=== PATIENT | female | born 1955 | race Two or more races ===

== ENCOUNTER 2025-10-31 03:40 | Emergency (ER) | payer OTHER ==
[~2025-10-31] VITALS: Ht 162.6 cm; Wt 72.6 kg
[2025-10-31] MEDS ORDERED: ZOLOFT100 MG (03:47)
[2025-10-31 03:51] VITALS: BP 147/61; O2SAT 97
[2025-10-31] MEDS ORDERED: PROMETHAZINE HCL 25 MG/ML AMPUL IM STA (06:12)
[2025-10-31] MEDS ORDERED: FAMOTIDINE/PF 20 MG in 0.9 % SODIUM CHLORIDE 10 ML IV PUSH STA (06:14)
[2025-10-31] MEDS ORDERED: LACTOBACILLUS ACIDOPHILUS 1 CAP CAP PO STA (06:14)
[2025-10-31] MEDS ORDERED: 0.9 % SODIUM CHLORIDE 1,000 ML IV ONE (06:15)
[2025-10-31] MEDS ORDERED: LACTOBACILLUS ACIDOPHILUS 1 CAP CAP PO ONE (06:24)
[2025-10-31] MEDS ORDERED: PROMETHAZINE HCL 25 MG/ML AMPUL ONE (06:24)
[2025-10-31] MEDS ORDERED: FAMOTIDINE/PF 20 MG/2 ML VIAL ONE (06:24)
[2025-10-31 06:54] LABS: BASO % 0.2 % (0.1-1.2); EOS # 0.03 (0.04-0.54); EOS % 0.5 % (0.7-7.0); LYMPH # 0.33 (1.18-3.74); LYMPH % 5.7 % (19.3-53.1); MEAN PLATELET VOLUME 10.50 fl (9.4-12.4); MONO # 0.18 (0.24-0.82); MONO % 3.1 % (4.7-12.5); NEUT # 5.18 (1.56-6.13); NEUT % 90.3 % (34.0-71.1); RED CELL DISTRIBUTION WIDTH 13.7 % (11.6-14.4)
[2025-10-31 07:19] LABS: BUN CREA RATIO 33.0 (7.0-25.0); CREATININE SERUM 0.46 mg/dL (0.55-1.02); GFR 134.69; GLUCOSE FASTING 128.0 mg/dL (65-100); OSMOLALITY SERUM 289.0 MOSM/KG (275-295)
[2025-10-31 08:05] LABS: URINE APPEARANCE Turbid; URINE BILIRRUBIN Negative (NEGATIVE); URINE BLOOD Moderate; URINE COLOR Dark Yellow; URINE GLUCOSE Negative (NEGATIVE); URINE KETONE 15 (NEGATIVE); URINE LEUKOCYTE Negative; URINE NITRATE Negative; URINE PROTEIN Negative (NEGATIVE); URINE UROBILINOGEN 0.2 E.U./dl
[2025-10-31 08:08] LABS: URINE BACTERIA 10.7 uL (0.0-1933); URINE EPITHELIAL CELLS 2.6 uL (0.0-38.8); URINE RBC 73.9 uL (0.0-20.8); URINE WBC 8.5 uL (0.0-23.2)
[2025-10-31 08:31] LABS: URINE CAST 0.29 uL (0.0-1.40)
== END 2025-10-31 09:10 | disposition home or self-care (01) ==
LOC: ER 03:40
PROVIDERS: General Practice
DX: K52.89 Other specified noninfective gastroenteritis and colitis (principal); A08.8 Other specified intestinal infections; R11.10 Vomiting, unspecified
CPT/HCPCS: 36415; 96365; 96366; 96372; 99282; J3490 ×2; J7030